=== PATIENT | female | born 1985 | race Caucasian/White ===

== ENCOUNTER 2016-12-11 16:26 | Observation (INO) | payer MEDICAID ==
[~2016-12-11] VITALS: Ht 162.6 cm; Wt 68.2 kg
[~2016-12-11 16:26] MED LIST: CLON0.5T20 PO; RISP2TAB35 PO; ZIPR60CA2 PO
[2016-12-11 16:57] LABS: DAU SCREEN DISCLAIMER
[2016-12-11] MEDS ORDERED: PLEASE ENTER HEIGHT AND WEIGHT MC SCH (17:00)
[2016-12-11] MEDS ORDERED: IBUPROFEN 200 MG TABLET PO ONE (17:00)
[2016-12-11] MEDS ORDERED: CLINDAMYCIN 300 MG CAPSULE PO ONE (17:00)
[2016-12-11 17:11] LABS: ASPARTATE AMINO TRANSFERASE 22 U/L (15-37); BLOOD UREA NITROGEN 13 mg/dL (7-18)
[2016-12-11 17:17] LABS: ACETAMINOPHEN < 2 mcg/mL (10-30)
[2016-12-11] MEDS ORDERED: POTASSIUM CHLORIDE 20 MEQ TAB.ER.PRT PO ONE (17:30)
[2016-12-11] MEDS ORDERED: POTASSIUM CHLORIDE 20 MEQ TAB.ER.PRT ONE (17:36)
[2016-12-11] MEDS ORDERED: ONDANSETRON ODT 4 MG PO PRN (18:30)
[2016-12-11] MEDS ORDERED: DOCUSATE 100 MG CAPSULE PO PRN (18:30)
[2016-12-11] MEDS ORDERED: POLYETHYLENE GLYCOL 17 GM PACKET PO PRN (18:30)
[2016-12-11] MEDS ORDERED: BISACODYL 10 MG SUPP PR PRN (18:30)
[2016-12-11] MEDS: CLINDAMYCIN 300 MG CAPSULE PO SCH (18:30)
[2016-12-11] MEDS ORDERED: LORazepam 1MG TABLET ONE (18:37)
[2016-12-11] MEDS ORDERED: IBUPROFEN 200 MG TABLET ONE (18:37)
[2016-12-11] MEDS: LORazepam 1MG TABLET PO PRN (18:40)
[2016-12-11] MEDS ORDERED: SERT50TA5 PO (19:12)
[2016-12-11] MEDS ORDERED: QUET400T4 PO (19:12)
[2016-12-11 19:58] VITALS: BP 113/69
[2016-12-11] MEDS: SERTRALINE 100MG TABLET PO SCH (21:09)
[2016-12-12] MEDS: CLINDAMYCIN 300 MG CAPSULE PO SCH ×3 (00:01→12:10)
[2016-12-12] MEDS: ACETAMINOPHEN 325 MG TABLET PO PRN ×2 (05:18→09:01)
[2016-12-12 05:54] LABS: BLOOD UREA NITROGEN 16 mg/dL (7-18)
[2016-12-12] MEDS ORDERED: CLIN300C93 PO (08:03)
[2016-12-12 08:11] VITALS: BP 101/69
[2016-12-12] MEDS ORDERED: QUETIAPINE 200 MG TABLET PO SCH (09:00)
[2016-12-12] MEDS: SERTRALINE 100MG TABLET PO SCH (09:01)
[2016-12-12] MEDS ORDERED: HYDROcodone/APAP 5/325 TABLET PO PRN (10:00)
[2016-12-12] MEDS: LORazepam 1MG TABLET PO PRN (11:18)
== END 2016-12-12 12:30 ==
LOC: ED 17:38 → EDIP 17:42 → 3E 19:35
PROVIDERS: ADMIT Hospitalist; ATTEND Hospitalist
DX: R45.851 Suicidal ideations (principal); K04.7 Periapical abscess without sinus; E87.6 Hypokalemia; E87.1 Hypo-osmolality and hyponatremia; D72.829 Elevated white blood cell count, unspecified; F31.9 Bipolar disorder, unspecified; F17.210 Nicotine dependence, cigarettes, uncomplicated; F12.10 Cannabis abuse, uncomplicated
CPT/HCPCS: 36415; 80048; 80053; 80307; 80329; 81001; 84132; 84703; 85025; 93005; 99285; G0378; G0480

== ENCOUNTER 2017-08-13 23:32 | Observation (INO) | payer MEDICAID ==
[~2017-08-13] VITALS: Ht 162.6 cm; Wt 84.0 kg
[~2017-08-13 23:32] MED LIST changes: +CLIN300C8 PO; +QUET400T4 PO; +SERT50TA5 PO
[2017-08-14 00:37] LABS: BASOPHILS # (AUTO) 0.06 x10^3/uL (0-0.1); BASOPHILS % (AUTO) 1 % (0-1); EOSINOPHILS # (AUTO) 0.15 x10^3/uL (0-0.4); EOSINOPHILS % (AUTO) 1 % (1-7); LYMPHOCYTES # (AUTO) 3.22 x10^3/uL (1-3.4); LYMPHOCYTES % (AUTO) 27 % (22-44); MD NO; MEAN CORPUSCULAR HEMOGLOBIN 33.3 pg (27.0-34.8); MEAN CORPUSCULAR HGB CONC 34.2 g/dL (32.4-35.8); MEAN CORPUSCULAR VOLUME 97.3 fL (80-100); MEAN PLATELET VOLUME 8.8 fL (7.4-10.4); MONOCYTES # (AUTO) 0.86 x10^3/uL (0.2-0.8); MONOCYTES % (AUTO) 7 % (2-9); NEUTROPHILS # (AUTO) 7.55 x10^3/uL (1.8-6.8); NEUTROPHILS % (AUTO) 64 % (42-75); PLATELET COUNT 263 x10^3/uL (130-400); RED BLOOD COUNT 4.56 x10^6/uL (3.82-5.3); RED CELL DISTRIBUTION WIDTH 14.2 % (9.6-15.2)
[2017-08-14 00:38] LABS: AMPHETAMINE SCREEN, URINE Positive (Negative); BARBITURATE SCREEN, URINE Negative (Negative); BENZODIAZEPINE SCREEN, URINE Negative (Negative); CANNABINOID SCREEN, URINE Positive (Negative); COCAINE SCREEN, URINE Negative (Negative); METHADONE SCREEN, URINE Negative (Negative); OPIATE SCREEN, URINE Negative (Negative)
[2017-08-14 00:50] LABS: ALBUMIN 4.3 g/dL (3.4-5.0); ANION GAP 10 mmol/L (5-15); CALCIUM 8.9 mg/dL (8.5-10.1); CHLORIDE 107 mmol/L (98-107); CREATININE 0.72 mg/dL (0.55-1.02); SALICYLATE LEVEL 4.4 mg/dL (2.8-20.0)
[2017-08-14] MEDS ORDERED: ONDANSETRON ODT 4 MG ONE (00:54)
[2017-08-14] MEDS ORDERED: LORazepam 1MG TABLET ONE ×3 (00:55→17:37)
[2017-08-14] MEDS ORDERED: LORazepam 1MG TABLET PO ONE (01:00)
[2017-08-14] MEDS ORDERED: ONDANSETRON ODT 4 MG PO ONE (01:00)
[2017-08-14 01:01] LABS: ACETAMINOPHEN < 2 mcg/mL (10-30)
[2017-08-14] MEDS ORDERED: IBUPROFEN 200 MG TABLET ONE (02:22)
[2017-08-14] MEDS ORDERED: IBUPROFEN 200 MG TABLET PO ONE (02:30)
[2017-08-14] MEDS ORDERED: ACETAMINOPHEN 325 MG TABLET PO PRN (05:00)
[2017-08-14] MEDS ORDERED: ONDANSETRON ODT 4 MG PO PRN (05:00)
[2017-08-14] MEDS ORDERED: DOCUSATE 100 MG CAPSULE PO PRN (05:00)
[2017-08-14 05:28] LABS: FREE T4 (FREE THYROXINE) 1.18 ng/dL (0.76-1.46); THYROID STIMULATING HORMONE 1.94 mIU/L (0.358-3.740)
[2017-08-14] MEDS ORDERED: POTASSIUM CHLORIDE 20 MEQ TAB.ER.PRT PO ONE (05:30)
[2017-08-14] MEDS ORDERED: ACETAMINOPHEN 325 MG TABLET ONE (07:49)
[2017-08-14] MEDS ORDERED: POTASSIUM CHLORIDE 20 MEQ TAB.ER.PRT ONE (07:50)
[2017-08-14] MEDS ORDERED: KETOROLAC 30 MG/1 ML ONE (09:27)
[2017-08-14] MEDS: KETOROLAC 30 MG/1 ML IM PRN (10:00)
[2017-08-14] MEDS ORDERED: ZIPRASIDONE 20MG CAPSULE ONE (11:45)
[2017-08-14] MEDS ORDERED: ZIPRASIDONE 20 MG INJ IM ONE ×2 (11:47→19:44)
[2017-08-14] MEDS ORDERED: ZIPRASIDONE 20MG CAPSULE PO PRN (12:00)
[2017-08-14] MEDS: ZIPRASIDONE 20 MG INJ IM PRN ×2 (12:02→20:05)
[2017-08-14] MEDS: LORazepam 1MG TABLET PO PRN ×2 (12:03→17:39)
[2017-08-14] MEDS ORDERED: QUETIAPINE 100MG TABLET ONE (20:03)
[2017-08-14] MEDS: QUETIAPINE 100MG TABLET PO SCH (20:05)
[2017-08-15 03:19] VITALS: BP 119/68
[2017-08-15] MEDS: LORazepam 1MG TABLET PO PRN ×5 (03:22→21:32)
[2017-08-15 06:04] LABS: ALANINE AMINOTRANSFERASE 11 U/L (12-78); ALBUMIN 3.6 g/dL (3.4-5.0); ANION GAP 8 mmol/L (5-15); CALCIUM 8.5 mg/dL (8.5-10.1); CHLORIDE 110 mmol/L (98-107); CREATININE 0.86 mg/dL (0.55-1.02)
[2017-08-15 06:06] LABS: ALKALINE PHOSPHATASE 72 U/L (45-117); BILIRUBIN,TOTAL 0.3 mg/dL (0.2-1.0); TOTAL PROTEIN 6.6 g/dL (6.4-8.2)
[2017-08-15 06:19] LABS: BASOPHILS # (AUTO) 0.02 x10^3/uL (0-0.1); BASOPHILS % (AUTO) 0 % (0-1); EOSINOPHILS # (AUTO) 0.46 x10^3/uL (0-0.4); EOSINOPHILS % (AUTO) 5 % (1-7); LYMPHOCYTES # (AUTO) 3.26 x10^3/uL (1-3.4); LYMPHOCYTES % (AUTO) 36 % (22-44); MD NO; MEAN CORPUSCULAR HEMOGLOBIN 33.7 pg (27.0-34.8); MEAN CORPUSCULAR HGB CONC 34.4 g/dL (32.4-35.8); MEAN CORPUSCULAR VOLUME 97.9 fL (80-100); MEAN PLATELET VOLUME 9.1 fL (7.4-10.4); MONOCYTES # (AUTO) 0.75 x10^3/uL (0.2-0.8); MONOCYTES % (AUTO) 8 % (2-9); NEUTROPHILS # (AUTO) 4.54 x10^3/uL (1.8-6.8); NEUTROPHILS % (AUTO) 50 % (42-75); PLATELET COUNT 227 x10^3/uL (130-400); RED BLOOD COUNT 4.43 x10^6/uL (3.82-5.3)
[2017-08-15 08:21] VITALS: BP_SYST 74; BP_SYST 91; BP_DIAS 49; BP_DIAS 60
[2017-08-15 08:42] VITALS: BP 103/68
[2017-08-15 09:34] LABS: CULTURE INDICATED? YES; MICROSCOPIC INDICATED
[2017-08-15 11:56] VITALS: BP 114/90
[2017-08-15 15:22] VITALS: BP 120/76
[2017-08-15 20:06] VITALS: BP 93/67
[2017-08-15] MEDS: QUETIAPINE 100MG TABLET PO SCH (20:33)
[2017-08-16 07:30] VITALS: BP 113/77
[2017-08-16] MEDS: LORazepam 1MG TABLET PO PRN ×4 (07:35→20:02)
[2017-08-16] MEDS: KETOROLAC 30 MG/1 ML IM PRN (17:10)
[2017-08-16 19:50] VITALS: BP 111/77
[2017-08-16] MEDS: QUETIAPINE 100MG TABLET PO SCH (20:02)
[2017-08-17] MEDS: LORazepam 1MG TABLET PO PRN ×2 (08:20→13:16)
[2017-08-17 08:26] VITALS: BP 141/109
[2017-08-17] MEDS: CEPHALEXIN 250 MG CAPSULE PO SCH ×3 (10:39→21:40)
[2017-08-17] MEDS: APAP/CODEINE 300/30MG TABLET PO PRN ×3 (10:39→21:44)
[2017-08-17] MEDS ORDERED: CEPHALEXIN 500 MG CAPSULE ONE (20:57)
[2017-08-17] MEDS: QUETIAPINE 100MG TABLET PO SCH (21:00)
[2017-08-18] MEDS: CEPHALEXIN 250 MG CAPSULE PO SCH ×4 (04:08→21:09)
[2017-08-18] MEDS: APAP/CODEINE 300/30MG TABLET PO PRN ×4 (04:08→19:44)
[2017-08-18 07:30] VITALS: BP 96/66
[2017-08-18] MEDS ORDERED: CEPHALEXIN 500 MG CAPSULE ONE (08:34)
[2017-08-18 08:45] VITALS: BP 118/80
[2017-08-18] MEDS: LORazepam 1MG TABLET PO PRN ×3 (08:45→17:50)
[2017-08-18 19:37] VITALS: BP_SYST 112; BP_SYST 93; BP_DIAS 64; BP_DIAS 75
[2017-08-18] MEDS: QUETIAPINE 100MG TABLET PO SCH (21:09)
[2017-08-19] MEDS: CEPHALEXIN 250 MG CAPSULE PO SCH ×4 (03:31→20:58)
[2017-08-19] MEDS: APAP/CODEINE 300/30MG TABLET PO PRN ×4 (04:59→19:15)
[2017-08-19 07:31] VITALS: BP 99/67
[2017-08-19] MEDS: LORazepam 1MG TABLET PO PRN ×3 (08:10→17:41)
[2017-08-19] MEDS ORDERED: LORazepam 1MG TABLET PO PRN (18:00)
[2017-08-19 19:38] VITALS: BP 116/81
[2017-08-19] MEDS: QUETIAPINE 100MG TABLET PO SCH (20:58)
[2017-08-20] MEDS: APAP/CODEINE 300/30MG TABLET PO PRN ×3 (01:29→10:09)
[2017-08-20] MEDS: CEPHALEXIN 250 MG CAPSULE PO SCH ×3 (04:08→15:34)
[2017-08-20 08:00] VITALS: BP 105/73
[2017-08-20] MEDS ORDERED: APAP/CODEINE 300/30MG TABLET PO PRN (12:30)
[2017-08-20] MEDS ORDERED: LORazepam 1MG TABLET PO PRN (12:30)
== END 2017-08-20 16:00 ==
LOC: ED 23:59 → INTOOBSV 08-14 03:05 → EDIP 08-14 03:05 → 2N 08-15 02:59
PROVIDERS: ADMIT Internal Medicine; ATTEND Internal Medicine
DX: R45.851 Suicidal ideations (principal); F31.9 Bipolar disorder, unspecified; E87.6 Hypokalemia; F15.10 Other stimulant abuse, uncomplicated; F17.200 Nicotine dependence, unspecified, uncomplicated; D72.829 Elevated white blood cell count, unspecified; Z76.5 Malingerer [conscious simulation]; F41.1 Generalized anxiety disorder; F12.10 Cannabis abuse, uncomplicated
CPT/HCPCS: 36415; 80048; 80053; 80307; 80329; 81001; 82040; 84439; 84443; 84703; 85025; 87077; 87086; 87186; 96372; 99285; G0378; J1885; J3486; Q0162; G0480

== ENCOUNTER 2017-11-07 22:11 | Inpatient (IN) | payer MEDICAID ==
[~2017-11-07] VITALS: Ht 162.6 cm; Wt 93.5 kg
[2017-11-07] MEDS ORDERED: LORazepam 1MG TABLET PO ONE (23:00)
[2017-11-07 23:04] LABS: BASOPHILS # (AUTO) 0.03 x10^3/uL (0-0.1); BASOPHILS % (AUTO) 0 % (0-1); EOSINOPHILS # (AUTO) 0.12 x10^3/uL (0-0.4); EOSINOPHILS % (AUTO) 1 % (1-7); LYMPHOCYTES # (AUTO) 3.12 x10^3/uL (1-3.4); LYMPHOCYTES % (AUTO) 21 % (22-44); MD NO; MEAN CORPUSCULAR HEMOGLOBIN 32.8 pg (27.0-34.8); MEAN CORPUSCULAR VOLUME 96.5 fL (80-100); MONOCYTES # (AUTO) 0.95 x10^3/uL (0.2-0.8); MONOCYTES % (AUTO) 7 % (2-9); NEUTROPHILS # (AUTO) 10.49 x10^3/uL (1.8-6.8); NEUTROPHILS % (AUTO) 71 % (42-75); PLATELET COUNT 359 x10^3/uL (130-400); RED BLOOD COUNT 4.77 x10^6/uL (3.82-5.3); RED CELL DISTRIBUTION WIDTH 13.5 % (9.6-15.2)
[2017-11-07 23:16] LABS: ALBUMIN 4.4 g/dL (3.4-5.0); ANION GAP 7 mmol/L (5-15); CALCIUM 8.9 mg/dL (8.5-10.1); CHLORIDE 108 mmol/L (98-107); SALICYLATE LEVEL 3.7 mg/dL (2.8-20.0)
[2017-11-07 23:22] LABS: ACETAMINOPHEN < 2 mcg/mL (10-30)
[2017-11-07] MEDS ORDERED: LORazepam 1MG TABLET ONE (23:32)
[2017-11-08] MEDS ORDERED: SERT100T PO (00:09)
[2017-11-08] MEDS ORDERED: QUET400T4 PO (00:09)
[2017-11-08] MEDS ORDERED: OXYC20TA2 PO (00:10)
[2017-11-08 00:27] LABS: CULTURE INDICATED? NO; MICROSCOPIC AUTO
[2017-11-08 00:37] LABS: AMPHETAMINE SCREEN, URINE Positive (Negative); BARBITURATE SCREEN, URINE Negative (Negative); CANNABINOID SCREEN, URINE Positive (Negative); COCAINE SCREEN, URINE Positive (Negative); METHADONE SCREEN, URINE Negative (Negative); OPIATE SCREEN, URINE Positive (Negative)
[2017-11-08 00:39] LABS: BENZODIAZEPINE SCREEN, URINE Positive (Negative)
[2017-11-08] MEDS ORDERED: PROMETHAZINE 25 MG/ML, 1ML IM ONE (01:00)
[2017-11-08] MEDS ORDERED: PROMETHAZINE 25 MG/ML, 1ML ONE (01:07)
[2017-11-08] MEDS ORDERED: POTASSIUM CHLORIDE 20 MEQ TAB.ER.PRT PO ONE (04:00)
[2017-11-08] MEDS ORDERED: ONDANSETRON ODT 4 MG PO PRN (04:00)
[2017-11-08] MEDS ORDERED: POTASSIUM CHLORIDE 20 MEQ TAB.ER.PRT ONE (04:49)
[2017-11-08] MEDS ORDERED: LORazepam 1MG TABLET ONE ×3 (04:49→14:25)
[2017-11-08] MEDS ORDERED: POTASSIUM CHLORIDE 20 MEQ PACKET ONE (05:06)
[2017-11-08] MEDS: LORazepam 1MG TABLET PO PRN ×3 (11:02→19:42)
[2017-11-08] MEDS ORDERED: DICY20TA3 PO (15:01)
[2017-11-08] MEDS ORDERED: SULF500T36 PO (15:01)
[2017-11-08] MEDS ORDERED: DICL75TA2 PO (15:02)
[2017-11-08] MEDS: SULFASALAZINE 500 MG TABLET PO SCH ×3 (15:30→22:07)
[2017-11-08] MEDS ORDERED: DICYCLOMINE 20 MG TABLET PO SCH (16:00)
[2017-11-08] MEDS: SODIUM CHLORIDE 0.9% 1,000 ML IV SCH (17:51)
[2017-11-08] MEDS: DICYCLOMINE 10 MG CAPSULE PO SCH ×2 (18:03→22:07)
[2017-11-08 20:00] VITALS: BP 114/77
[2017-11-08] MEDS: QUETIAPINE 200 MG TABLET PO SCH (22:07)
[2017-11-08] MEDS: ACETAMINOPHEN 325 MG TABLET PO PRN (22:07)
[2017-11-09 02:00] VITALS: BP 104/70
[2017-11-09] MEDS: SODIUM CHLORIDE 0.9% 1,000 ML IV SCH ×3 (02:05→18:25)
[2017-11-09 05:08] LABS: BASOPHILS # (AUTO) 0.16 x10^3/uL (0-0.1); BASOPHILS % (AUTO) 2 % (0-1); EOSINOPHILS # (AUTO) 0.37 x10^3/uL (0-0.4); EOSINOPHILS % (AUTO) 4 % (1-7); LYMPHOCYTES # (AUTO) 3.62 x10^3/uL (1-3.4); LYMPHOCYTES % (AUTO) 39 % (22-44); MD NO; MEAN CORPUSCULAR VOLUME 97.1 fL (80-100); MEAN PLATELET VOLUME 9.3 fL (7.4-10.4); MONOCYTES # (AUTO) 0.79 x10^3/uL (0.2-0.8); MONOCYTES % (AUTO) 8 % (2-9); NEUTROPHILS # (AUTO) 4.47 x10^3/uL (1.8-6.8); NEUTROPHILS % (AUTO) 48 % (42-75); PLATELET COUNT 283 x10^3/uL (130-400); RED BLOOD COUNT 4.56 x10^6/uL (3.82-5.3); RED CELL DISTRIBUTION WIDTH 13.5 % (9.6-15.2)
[2017-11-09 05:11] LABS: ALANINE AMINOTRANSFERASE 13 U/L (12-78); ALBUMIN 3.6 g/dL (3.4-5.0); ANION GAP 6 mmol/L (5-15); CALCIUM 8.4 mg/dL (8.5-10.1); CHLORIDE 109 mmol/L (98-107); CREATININE 0.85 mg/dL (0.55-1.02)
[2017-11-09 05:13] LABS: ALKALINE PHOSPHATASE 90 U/L (45-117); BILIRUBIN,TOTAL 0.8 mg/dL (0.2-1.0); TOTAL PROTEIN 6.7 g/dL (6.4-8.2)
[2017-11-09] MEDS: LORazepam 1MG TABLET PO PRN ×3 (05:37→20:40)
[2017-11-09] MEDS: DICYCLOMINE 10 MG CAPSULE PO SCH ×4 (05:37→20:40)
[2017-11-09] MEDS: SULFASALAZINE 500 MG TABLET PO SCH ×4 (05:37→20:40)
[2017-11-09 07:30] VITALS: BP 107/75
[2017-11-09] MEDS: SERTRALINE 100MG TABLET PO SCH (08:48)
[2017-11-09] MEDS: DICLOFENAC SODIUM 75 MG TABLET.DR PO SCH (08:48)
[2017-11-09] MEDS ORDERED: QUETIAPINE 200 MG TABLET PO SCH (09:00)
[2017-11-09] MEDS ORDERED: POTASSIUM CHLORIDE 20 MEQ TAB.ER.PRT PO ONE (10:00)
[2017-11-09] MEDS ORDERED: OXYcodone 5 MG/5 ML ORAL.SOL UDC PO PRN (10:30)
[2017-11-09] MEDS: OXYcodone IR 5MG TABLET PO PRN ×2 (11:04→17:06)
[2017-11-09] MEDS: ACETAMINOPHEN 325 MG TABLET PO PRN (12:11)
[2017-11-09 13:27] VITALS: BP 99/62
[2017-11-09 20:00] VITALS: BP 95/64
[2017-11-09] MEDS: QUETIAPINE 200 MG TABLET PO SCH (20:40)
[2017-11-10 02:00] VITALS: BP 106/74
[2017-11-10] MEDS: SODIUM CHLORIDE 0.9% 1,000 ML IV SCH ×2 (03:18→10:40)
[2017-11-10] MEDS: SULFASALAZINE 500 MG TABLET PO SCH ×4 (06:10→21:44)
[2017-11-10] MEDS: DICYCLOMINE 10 MG CAPSULE PO SCH ×4 (06:10→21:45)
[2017-11-10 07:07] VITALS: BP_SYST 102; BP_SYST 108; BP_DIAS 65; BP_DIAS 75
[2017-11-10 07:08] VITALS: BP 114/72
[2017-11-10] MEDS: SERTRALINE 100MG TABLET PO SCH (08:40)
[2017-11-10] MEDS: OXYcodone IR 5MG TABLET PO PRN ×3 (08:40→21:46)
[2017-11-10] MEDS: DICLOFENAC SODIUM 75 MG TABLET.DR PO SCH (08:40)
[2017-11-10] MEDS: LORazepam 1MG TABLET PO PRN ×2 (11:16→16:18)
[2017-11-10 11:38] LABS: ANION GAP 6 mmol/L (5-15); CALCIUM 7.9 mg/dL (8.5-10.1); CHLORIDE 113 mmol/L (98-107); CREATININE 0.75 mg/dL (0.55-1.02)
[2017-11-10 13:23] VITALS: BP 103/67
[2017-11-10 20:29] VITALS: BP 105/69
[2017-11-10 21:35] VITALS: BP 107/70
[2017-11-10] MEDS: QUETIAPINE 200 MG TABLET PO SCH (21:45)
[2017-11-11] MEDS: DICYCLOMINE 10 MG CAPSULE PO SCH ×4 (06:43→20:20)
[2017-11-11] MEDS: SULFASALAZINE 500 MG TABLET PO SCH ×4 (06:43→20:20)
[2017-11-11] MEDS: DICLOFENAC SODIUM 75 MG TABLET.DR PO SCH (07:45)
[2017-11-11] MEDS: SERTRALINE 100MG TABLET PO SCH (07:45)
[2017-11-11 07:50] VITALS: BP 96/60
[2017-11-11] MEDS: LORazepam 1MG TABLET PO PRN ×2 (07:59→15:08)
[2017-11-11] MEDS: OXYcodone IR 5MG TABLET PO PRN ×2 (07:59→15:08)
[2017-11-11 19:30] VITALS: BP 112/71
[2017-11-11] MEDS: QUETIAPINE 200 MG TABLET PO SCH (20:20)
[2017-11-12] MEDS: DICYCLOMINE 10 MG CAPSULE PO SCH ×4 (05:41→21:33)
[2017-11-12] MEDS: OXYcodone IR 5MG TABLET PO PRN ×4 (05:41→21:34)
[2017-11-12] MEDS: SULFASALAZINE 500 MG TABLET PO SCH ×4 (05:41→21:33)
[2017-11-12] MEDS: ACETAMINOPHEN 325 MG TABLET PO PRN (05:46)
[2017-11-12 07:46] VITALS: BP 95/55
[2017-11-12] MEDS: LORazepam 1MG TABLET PO PRN ×3 (08:31→17:04)
[2017-11-12] MEDS: SERTRALINE 100MG TABLET PO SCH (08:31)
[2017-11-12] MEDS: IBUPROFEN 200 MG TABLET PO PRN ×2 (08:43→19:11)
[2017-11-12 19:19] VITALS: BP 108/73
[2017-11-12] MEDS: QUETIAPINE 200 MG TABLET PO SCH (21:34)
[2017-11-13] MEDS: SULFASALAZINE 500 MG TABLET PO SCH ×4 (06:32→21:01)
[2017-11-13] MEDS: DICYCLOMINE 10 MG CAPSULE PO SCH ×4 (06:32→21:01)
[2017-11-13] MEDS: OXYcodone IR 5MG TABLET PO PRN ×3 (06:33→18:19)
[2017-11-13 07:45] VITALS: BP 111/76
[2017-11-13] MEDS: LORazepam 1MG TABLET PO PRN ×3 (08:26→17:44)
[2017-11-13] MEDS: SERTRALINE 100MG TABLET PO SCH (08:26)
[2017-11-13] MEDS: IBUPROFEN 200 MG TABLET PO PRN (16:50)
[2017-11-13 19:35] VITALS: BP 102/65
[2017-11-13] MEDS: QUETIAPINE 200 MG TABLET PO SCH (21:00)
[2017-11-14] MEDS: SULFASALAZINE 500 MG TABLET PO SCH ×4 (06:01→20:14)
[2017-11-14] MEDS: OXYcodone IR 5MG TABLET PO PRN ×3 (06:02→18:09)
[2017-11-14] MEDS: DICYCLOMINE 10 MG CAPSULE PO SCH ×4 (06:02→20:14)
[2017-11-14 07:37] VITALS: BP 93/64
[2017-11-14] MEDS: SERTRALINE 100MG TABLET PO SCH (08:37)
[2017-11-14] MEDS: LORazepam 1MG TABLET PO PRN (08:37)
[2017-11-14] MEDS: ACETAMINOPHEN 325 MG TABLET PO PRN ×2 (12:12→16:38)
[2017-11-14] MEDS: GABAPENTIN 300 MG CAPSULE PO SCH ×2 (14:23→20:14)
[2017-11-14 19:50] VITALS: BP 120/79
[2017-11-14] MEDS: QUETIAPINE 200 MG TABLET PO SCH (20:14)
[2017-11-15] MEDS: DICYCLOMINE 10 MG CAPSULE PO SCH ×4 (07:31→21:22)
[2017-11-15] MEDS: SERTRALINE 50MG TABLET PO SCH (07:31)
[2017-11-15] MEDS: GABAPENTIN 300 MG CAPSULE PO SCH ×3 (07:31→21:23)
[2017-11-15] MEDS: SULFASALAZINE 500 MG TABLET PO SCH ×4 (07:31→21:23)
[2017-11-15] MEDS: OXYcodone IR 5MG TABLET PO PRN ×3 (07:31→19:35)
[2017-11-15 08:38] VITALS: BP 126/70
[2017-11-15] MEDS: ACETAMINOPHEN 325 MG TABLET PO PRN (09:43)
[2017-11-15] MEDS: IBUPROFEN 200 MG TABLET PO PRN ×2 (11:12→17:26)
[2017-11-15] MEDS: QUETIAPINE 200 MG TABLET PO SCH (21:23)
[2017-11-16] MEDS: DICYCLOMINE 10 MG CAPSULE PO SCH ×2 (05:34→11:25)
[2017-11-16] MEDS: SULFASALAZINE 500 MG TABLET PO SCH ×2 (05:34→11:25)
[2017-11-16] MEDS: OXYcodone IR 5MG TABLET PO PRN ×2 (05:38→11:39)
[2017-11-16 07:48] VITALS: BP 94/63
[2017-11-16] MEDS: SERTRALINE 50MG TABLET PO SCH (08:00)
[2017-11-16] MEDS: GABAPENTIN 300 MG CAPSULE PO SCH (08:00)
[2017-11-16] MEDS ORDERED: OXYC5TAB3 PO (11:37)
[2017-11-16] MEDS ORDERED: IBUP-1484 PO (11:37)
[2017-11-16] MEDS ORDERED: GABA300C10 PO (11:37)
[2017-11-16] MEDS ORDERED: SERT50TA5 PO (11:37)
== END 2017-11-16 13:45 | DRG 918 ==
LOC: ED 23:29 → SUATTDRO 11-08 03:39 → EDIP 11-08 03:40 → 3E 11-08 15:21 → 4WST 11-08 17:04 → OBSVTOIN 11-09 14:37 → 3E 11-10 21:28
PROVIDERS: ADMIT Hospitalist; ATTEND Hospitalist
DX: T43.622A Poisoning by amphetamines, intentional self-harm, initial encounter (principal); F33.2 Major depressive disorder, recurrent severe without psychotic features; F11.20 Opioid dependence, uncomplicated; F15.20 Other stimulant dependence, uncomplicated; G89.29 Other chronic pain; E87.6 Hypokalemia; F12.90 Cannabis use, unspecified, uncomplicated; F14.10 Cocaine abuse, uncomplicated; R55 Syncope and collapse; K52.9 Noninfective gastroenteritis and colitis, unspecified; F17.210 Nicotine dependence, cigarettes, uncomplicated; F19.129 Other psychoactive substance abuse with intoxication, unspecified; F22 Delusional disorders; F41.9 Anxiety disorder, unspecified; Z59.0 Homelessness; Z98.51 Tubal ligation status; Z98.891 History of uterine scar from previous surgery; Z90.89 Acquired absence of other organs; Y92.89 Other specified places as the place of occurrence of the external cause
CPT/HCPCS: 36415; 80048; 80053; 80307; 80329; 81001; 82040; 83735; 84100; 84443; 84703; 85025; 93005; G0378; J2550; G0480; J7030

== ENCOUNTER 2019-01-07 17:46 | Inpatient (IN) | payer MEDICAID ==
[~2019-01-07] VITALS: Ht 162.6 cm; Wt 100.0 kg
[~2019-01-07 17:46] MED LIST changes: +DICL75TA3 PO; +DICY20TA3 PO; +GABA300C10 PO; +IBUP-1902 PO; +OXYC20TA2 PO; +OXYC5TAB3 PO; +SERT100T PO; +SERT50TA28 PO; -SERT50TA5 PO; +SULF500T36 PO
[2019-01-07] MEDS ORDERED: BISACODYL 10 MG SUPP PR PRN (18:30)
[2019-01-07] MEDS ORDERED: POLYETHYLENE GLYCOL 17 GM PACKET PO PRN (18:30)
[2019-01-07] MEDS ORDERED: DOCUSATE 100 MG CAPSULE PO PRN (18:30)
[2019-01-07] MEDS ORDERED: ONDANSETRON ODT 4 MG PO PRN (18:30)
[2019-01-07 20:42] VITALS: BP_SYST 111; BP_SYST 115; BP_SYST 116; BP_DIAS 65; BP_DIAS 77; BP_DIAS 78
[2019-01-07] MEDS: ACETAMINOPHEN 325 MG TABLET PO PRN (22:01)
[2019-01-07] MEDS: PLEASE ENTER HEIGHT AND WEIGHT MC SCH (22:07)
[2019-01-07] MEDS ORDERED: BUSP15TA PO (23:17)
[2019-01-07] MEDS ORDERED: LAMO5TB.2 PO (23:17)
[2019-01-07] MEDS ORDERED: TRAZ-137 PO (23:17)
[2019-01-07] MEDS ORDERED: QUET50TA PO (23:17)
[2019-01-07] MEDS ORDERED: HYDR50CA PO (23:17)
[2019-01-08] MEDS: PLEASE ENTER HEIGHT AND WEIGHT MC SCH (05:05)
[2019-01-08 06:25] LABS: BASOPHILS # (AUTO) 0.03 x10^3/uL (0-0.1); BASOPHILS % (AUTO) 0 % (0-1); EOSINOPHILS # (AUTO) 0.71 x10^3/uL (0-0.4); EOSINOPHILS % (AUTO) 8 % (1-7); LYMPHOCYTES # (AUTO) 2.87 x10^3/uL (1-3.4); LYMPHOCYTES % (AUTO) 31 % (22-44); MD NO; MEAN CORPUSCULAR HEMOGLOBIN 32.6 pg (27.0-34.8); MEAN CORPUSCULAR HGB CONC 33.2 g/dL (32.4-35.8); MEAN CORPUSCULAR VOLUME 98.3 fL (80-100); MEAN PLATELET VOLUME 8.2 fL (7.4-10.4); MONOCYTES # (AUTO) 0.66 x10^3/uL (0.2-0.8); MONOCYTES % (AUTO) 7 % (2-9); NEUTROPHILS # (AUTO) 5.02 x10^3/uL (1.8-6.8); NEUTROPHILS % (AUTO) 54 % (42-75); PLATELET COUNT 293 x10^3/uL (130-400); RED BLOOD COUNT 4.15 x10^6/uL (3.82-5.3); RED CELL DISTRIBUTION WIDTH 12.5 % (9.6-15.2)
[2019-01-08] MEDS: ACETAMINOPHEN 325 MG TABLET PO PRN (06:36)
[2019-01-08 06:38] LABS: ALBUMIN 3.4 g/dL (3.4-5.0); ANION GAP 6 mmol/L (5-15); CALCIUM 8.2 mg/dL (8.5-10.1); CHLORIDE 110 mmol/L (98-107)
[2019-01-08] MEDS ORDERED: NICOTINE 21 MG/24 HR PATCH.TD24 ONE (06:44)
[2019-01-08 07:03] LABS: ALANINE AMINOTRANSFERASE 16 U/L (12-78); ALKALINE PHOSPHATASE 96 U/L (45-117); BILIRUBIN,TOTAL 0.4 mg/dL (0.2-1.0); CHOL/HDL RATIO 4.4; CHOLESTEROL, TOTAL 166 mg/dL (140-239); CREATININE 0.85 mg/dL (0.55-1.02); FREE T4 (FREE THYROXINE) 0.77 ng/dL (0.76-1.46); HDL CHOL % 23 % (28-40); HDL CHOLESTEROL (DIRECT) 38 mg/dL (40-60); LDL CHOLESTEROL,CALCULATED 95 mg/dL (54-169); LDL/HDL RATIO 2.5 (0.5-3.0); TOTAL PROTEIN 6.4 g/dL (6.4-8.2); TRIGLYCERIDES 164 mg/dL (50-200); VLDL CHOLESTEROL 33 mg/dL (0-25)
[2019-01-08 07:34] VITALS: BP 110/71
[2019-01-08 08:19] LABS: MICROSCOPIC NOT IND
[2019-01-08 08:22] LABS: CULTURE INDICATED? NO
[2019-01-08] MEDS ORDERED: NICOTINE 21 MG/24 HR PATCH.TD24 TD SCH (09:00)
[2019-01-08] MEDS ORDERED: LORazepam 1MG TABLET PO STA (10:14)
[2019-01-08 10:20] LABS: AMPHETAMINE SCREEN, URINE Negative (Negative); BARBITURATE SCREEN, URINE Negative (Negative); BENZODIAZEPINE SCREEN, URINE Negative (Negative); CANNABINOID SCREEN, URINE Negative (Negative); COCAINE SCREEN, URINE Negative (Negative); METHADONE SCREEN, URINE Negative (Negative); OPIATE SCREEN, URINE Negative (Negative)
[2019-01-08] MEDS: IBUPROFEN 200 MG TABLET PO PRN ×2 (10:52→23:44)
[2019-01-08] MEDS: LORazepam 1MG TABLET PO SCH (17:18)
[2019-01-08] MEDS: BUSPIRONE 5 MG TABLET PO SCH ×2 (17:19→20:24)
[2019-01-08 19:43] VITALS: BP 122/82
[2019-01-08] MEDS: SUMATRIPTAN 25 MG TABLET PO PRN (19:46)
[2019-01-08] MEDS: QUETIAPINE 100MG TABLET PO SCH (20:23)
[2019-01-08] MEDS: LAMOTRIGINE 100 MG TABLET PO SCH (20:23)
[2019-01-09 07:34] VITALS: BP 112/75
[2019-01-09] MEDS: LORazepam 1MG TABLET PO SCH ×2 (07:42→17:13)
[2019-01-09] MEDS: NICOTINE 14MG/24 HR PATCH.TD24 TD SCH (08:55)
[2019-01-09] MEDS: BUSPIRONE 5 MG TABLET PO SCH ×3 (08:56→17:13)
[2019-01-09] MEDS ORDERED: BUSPIRONE 5 MG TABLET ONE (13:35)
[2019-01-09] MEDS: SUMATRIPTAN 25 MG TABLET PO PRN (13:45)
[2019-01-09] MEDS: LORazepam 0.5MG TABLET PO PRN (14:44)
[2019-01-09] MEDS: MELOXICAM 15 MG TABLET PO SCH ×2 (14:58→20:12)
[2019-01-09 19:59] VITALS: BP 131/87
[2019-01-09] MEDS: QUETIAPINE 100MG TABLET PO SCH (20:12)
[2019-01-09] MEDS: LAMOTRIGINE 100 MG TABLET PO SCH (20:12)
[2019-01-10] MEDS: ACETAMINOPHEN 325 MG TABLET PO PRN ×4 (02:12→17:25)
[2019-01-10] MEDS: SUMATRIPTAN 25 MG TABLET PO PRN ×2 (02:22→17:26)
[2019-01-10 07:27] VITALS: BP 119/80
[2019-01-10] MEDS: BUSPIRONE 5 MG TABLET PO SCH ×3 (08:12→17:26)
[2019-01-10] MEDS: MELOXICAM 15 MG TABLET PO SCH ×2 (08:12→20:34)
[2019-01-10] MEDS: LORazepam 1MG TABLET PO SCH ×2 (08:12→17:26)
[2019-01-10] MEDS: NICOTINE 14MG/24 HR PATCH.TD24 TD SCH (08:13)
[2019-01-10] MEDS: LORazepam 0.5MG TABLET PO PRN (12:18)
[2019-01-10] MEDS: METHOCARBAMOL 500 MG TABLET PO PRN (17:25)
[2019-01-10 19:52] VITALS: BP 119/77
[2019-01-10] MEDS: LAMOTRIGINE 100 MG TABLET PO SCH (20:34)
[2019-01-10] MEDS: DOXEPIN 25 MG CAPSULE PO SCH (20:34)
[2019-01-11] MEDS: LORazepam 1MG TABLET PO SCH ×2 (06:30→17:10)
[2019-01-11 08:00] VITALS: BP 91/59
[2019-01-11] MEDS: NICOTINE 14MG/24 HR PATCH.TD24 TD SCH (08:46)
[2019-01-11] MEDS: MELOXICAM 15 MG TABLET PO SCH ×2 (08:46→20:19)
[2019-01-11] MEDS: METHOCARBAMOL 500 MG TABLET PO PRN (08:46)
[2019-01-11] MEDS: BUSPIRONE 5 MG TABLET PO SCH ×3 (08:46→17:10)
[2019-01-11] MEDS: ACETAMINOPHEN 325 MG TABLET PO PRN (11:15)
[2019-01-11] MEDS: LORazepam 0.5MG TABLET PO PRN (12:05)
[2019-01-11] MEDS: SUMATRIPTAN 25 MG TABLET PO PRN (12:06)
[2019-01-11 12:12] VITALS: BP 101/69
[2019-01-11 19:47] VITALS: BP 115/81
[2019-01-11] MEDS: DOXEPIN 25 MG CAPSULE PO SCH (20:19)
[2019-01-11] MEDS: LAMOTRIGINE 100 MG TABLET PO SCH (20:50)
[2019-01-12] MEDS: LORazepam 1MG TABLET PO SCH (07:11)
[2019-01-12 07:15] VITALS: BP 101/72
[2019-01-12] MEDS: BUSPIRONE 5 MG TABLET PO SCH ×2 (08:25→11:05)
[2019-01-12] MEDS: MELOXICAM 15 MG TABLET PO SCH (08:26)
[2019-01-12] MEDS: NICOTINE 14MG/24 HR PATCH.TD24 TD SCH (08:26)
[2019-01-12] MEDS: METHOCARBAMOL 500 MG TABLET PO PRN (08:26)
[2019-01-12] MEDS: LORazepam 0.5MG TABLET PO PRN (11:05)
[2019-01-12] MEDS ORDERED: DOXE25CA PO (11:22)
[2019-01-12] MEDS ORDERED: LAMO100T PO (11:22)
[2019-01-12] MEDS ORDERED: BUSP5TAB2 PO (11:22)
[2019-01-12] MEDS ORDERED: MELO15TA24 PO (11:22)
[2019-01-12] MEDS ORDERED: LORA1TAB PO (11:22)
[2019-01-12] MEDS ORDERED: NICO-486 TD (11:22)
== END 2019-01-12 15:10 | disposition home or self-care (01) | DRG 753 ==
LOC: 3E 20:37
PROVIDERS: ADMIT Psychiatry & Neurology Psychosomatic Medicine; ATTEND Psychiatry & Neurology Psychosomatic Medicine
DX: F31.30 Bipolar disorder, current episode depressed, mild or moderate severity, unspecified (principal); E66.9 Obesity, unspecified; F12.10 Cannabis abuse, uncomplicated; M54.9 Dorsalgia, unspecified; F15.10 Other stimulant abuse, uncomplicated; F41.1 Generalized anxiety disorder; G43.909 Migraine, unspecified, not intractable, without status migrainosus; G89.29 Other chronic pain; Z87.891 Personal history of nicotine dependence; Z68.37 Body mass index [BMI] 37.0-37.9, adult; Z90.89 Acquired absence of other organs; Z88.1 Allergy status to other antibiotic agents; Z88.8 Allergy status to other drugs, medicaments and biological substances; Z88.0 Allergy status to penicillin
CPT/HCPCS: 36415; 71045; 80053; 80061; 80307; 81003; 82140; 82607; 84439; 84443; 85025; 86592; 93005; Q0162